=== PATIENT | male | born 1965 | race Hispanic/Latino ===

== ENCOUNTER 2017-04-26 12:14 | Inpatient (IN) | payer MEDICAID ==
--- NOTE | 2017-04-26 13:29 | ED PDOC ---
HPI: Chest Pain Time Seen by Provider: 04/26/17 12:39 Chief Complaint (Nursing): Chest Pain Chief Complaint (Provider): Chest Pain History Per: Patient History/Exam Limitations: no limitations Onset/Duration Of Symptoms: Days (x1. Began around 22:00 last night 04/25/17) Current Symptoms Are (Timing): Still Present Additional Complaint(s): Erik Dow is a 51 year old male, with previous medical history of ascending aortic aneurysm, who presents to the emergency department with complaints of left back pain radiating to his chest and down his left arm intermittently ongoing since symptom onset around 22:00 last night, 04/25/17. Patient described pain as "hard and sharp" with associated shortness of breath, pressure on the left side of chest and a "vibrating" sensation every 5-10 minutes, lasting 10 seconds each. He reports being admitted to the hospital 5-6 months ago for similar symptoms where he was diagnosed with an 4.7cm ascending aortic aneurysm in which he follows up with his architecture drafter, Dr. Marcin Cassidy. PMD: Dr. Jason Banuelos Past Medical History Reviewed: Historical Data, Nursing Documentation, Vital Signs Vital Signs: Last Vital Signs Temp 98.2 F 04/26/17 12:24 Pulse 121 H 04/26/17 12:24 Resp 20 04/26/17 12:24 BP 132/85 04/26/17 12:24 Pulse Ox 97 04/26/17 13:55 - Medical History PMH: Anxiety, Bipolar Disorder, Depression, Diabetes (type II), HTN, Hyperlipidemia Denies: Chronic Kidney Disease Other PMH: AAA - Surgical History Surgical History: Back Surgery - Family History Family History: States: Unknown Family Hx - Home Medications Home Medications: Ambulatory Orders Medication Instructions Recorded Allopurinol [Zyloprim] 300 mg PO DAILY 04/25/16 Aripiprazole [Abilify] 20 mg PO DAILY 04/25/16 Citalopram Hydrobromide [Celexa] 20 mg PO DAILY 04/25/16 GlipiZIDE [Glucotrol] 10 mg PO DAILY 04/25/16 Lisinopril [Zestril] 40 mg PO DAILY 04/25/16 Alogliptin Benzoate [Alogliptin] 25 mg PO DAILY 01/01/17 MetFORMIN [glucoPHAGE] 1,000 mg PO BID 01/01/17 Omeprazole 20 mg PO DAILY 01/01/17 - Allergies Allergies/Adverse Reactions: Allergies Allergy/AdvReac Type Severity Reaction Status Date / Time No Known Allergies Allergy Verified 04/26/17 12:21 Review of Systems ROS Statement: Except As Marked, All Systems Reviewed And Found Negative Constitutional: Negative for: Fever, Chills Cardiovascular: Positive for: Chest Pain (Left sided. Described as "hard" and "sharp" radiating through left arm and fingertips.), Palpitations (Described as "vibrations") Respiratory: Positive for: Shortness of Breath Musculoskeletal: Positive for: Arm Pain (left arm) Physical Exam - Reviewed Nursing Documentation Reviewed: Yes Vital Signs Reviewed: Yes - Physical Exam Appears: Positive for: Well, Non-toxic, No Acute Distress Head Exam: Positive for: ATRAUMATIC, NORMAL INSPECTION, NORMOCEPHALIC Skin: Positive for: Normal Color, Warm, Dry Eye Exam: Positive for: EOMI, Normal appearance, PERRL ENT: Positive for: Normal ENT Inspection Neck: Positive for: Normal, Painless ROM, Supple Cardiovascular/Chest: Positive for: Regular Rate, Rhythm, Chest Non Tender, Tachycardia Respiratory: Positive for: Normal Breath Sounds. Negative for: Crackles, Rales , Rhonchi, Wheezing, Respiratory Distress Gastrointestinal/Abdominal: Positive for: Normal Exam, Bowel Sounds, Soft. Negative for: Tenderness Back: Positive for: Normal Inspection. Negative for: L CVA Tenderness, R CVA Tenderness Extremity: Positive for: Normal ROM. Negative for: Pedal Edema Neurologic/Psych: Positive for: Alert, Oriented - Laboratory Results Result Diagrams: 04/26/17 13:28 04/26/17 13:28 - ECG O2 Sat by Pulse Oximetry: 97 (RA) Pulse Ox Interpretation: Normal Medical Decision Making Medical Decision Making: Initial Impression: Chest pain, expanding aortic aneurysm Initial Plan: * CXR * CT Chest w/ contrast * EKG * Labs * Troponin I * PTT * PT * Urinalysis * reevaluation Scribe Attestation: Documented by Erlinda Roca, acting as a scribe for Yola Mccabe MD. Provider Scribe Attestation: All medical record entries made by the Scribe were at my direction and personally dictated by me. I have reviewed the chart and agree that the record accurately reflects my personal performance of the history, physical exam, medical decision making, and the department course for this patient. I have also personally directed, reviewed, and agree with the discharge instructions and disposition.
[2017-04-26 13:35] LABS: BASO # 0.1 K/uL (0.0-0.2); BASO % 0.6 % (0.0-2.0); EOS # 0.2 K/uL (0.0-0.7); EOS % 1.6 % (0.0-4.0); HEMATOCRIT 43.6 % (35.0-51.0); LYMPH % 20.1 % (20.0-40.0); MEAN CELL VOLUME 92.8 fl (80.0-94.0); MEAN CORPUSCULAR HEMOGLOBIN 30.9 pg (27.0-31.0); MEAN CORPUSCULAR HGB CONC 33.3 g/dL (33.0-37.0); MEAN PLATELET VOLUME 9.5 fl (7.2-11.7); MONO # 0.7 K/uL (0.0-0.8); MONO % 7.3 % (0.0-10.0); NEUT # 6.9 K/uL (1.8-7.0); NEUT % 70.4 % (50.0-75.0); RED CELL DISTRIBUTION WIDTH 13.3 % (11.5-14.5); WHITE BLOOD COUNT 9.8 K/uL (4.8-10.8)
[2017-04-26 13:50] LABS: ALB/GLOB RATIO 1.5 (1.0-2.1); ALKALINE PHOSPHATASE 78 U/L (38-126); ALT/SGPT 122 U/L (21-72); AST/SGOT 69 U/L (17-59); BLOOD UREA NITROGEN 19 mg/dl (9-20); CALCIUM 9.3 mg/dL (8.4-10.2); CARBON DIOXIDE 23 mmol/L (22-30); CHLORIDE 99 mmol/L (98-107); GFR AFRICAN-AMERICAN > 60; GLUCOSE,RANDOM 248 mg/dL (75-110); SODIUM 136 mmol/l (132-148); TOTAL PROTEIN 7.8 G/DL (6.3-8.2)
[2017-04-26 14:03] LABS: PARTIAL THROMBOPLASTIN TIME 29.1 Seconds (25.6-37.1)
[2017-04-26 14:09] LABS: POTASSIUM 4.5 MMOL/L (3.6-5.0)
--- NOTE | 2017-04-26 15:03 | RAD ---
HISTORY: CP COMPARISON: Comparison is made to 01/01/2017 FINDINGS: LUNGS: No active pulmonary disease. PLEURA: No significant pleural effusion identified, no pneumothorax apparent. CARDIOVASCULAR: Normal. OSSEOUS STRUCTURES: No significant abnormalities. VISUALIZED UPPER ABDOMEN: Normal. OTHER FINDINGS: None. IMPRESSION: No active disease.
[2017-04-26] MEDS ORDERED: Iohexol 300 100 ML IJ ONE (15:37)
[2017-04-26] MEDS ORDERED: Sodium Chloride 0.9% 50 ML IV ONE (15:37)
[2017-04-26 15:40] LABS: RBC URINE < 1 /hpf (0-3); URINE BILIRUBIN NEGATIVE (NEGATIVE); URINE BLOOD NEGATIVE (NEGATIVE); URINE COLOR YELLOW (YELLOW); URINE GLUCOSE (UA) >=500 mg/dL (Normal); URINE KETONE 20 mg/dL (NEGATIVE); URINE LEUKOCYTE ESTERASE NEG Leu/uL (Negative); URINE PROTEIN NEGATIVE (NEGATIVE); URINE UROBILINOGEN 0.2-1.0 mg/dL (0.2-1.0); WBC URINE < 1 /hpf (0-5)
--- NOTE | 2017-04-26 15:43 | ED PDOC ---
- Laboratory Results Result Diagrams: 04/26/17 13:28 04/26/17 13:28 Interpretation Of Abn Labs: no acute - ECG ECG: Positive for: Interpreted By Me, Viewed By Me ECG Rhythm: Positive for: Nonspecific Changes (similar to old) O2 Sat by Pulse Oximetry: 97 (RA) Pulse Ox Interpretation: Normal - CT Scan/US ct Other Rad Studies (CT/US): Read By Radiologist Other Rad Interpretation: no acute Medical Decision Making Medical Decision Making: Time: 15:00 --Transferred patient from Dr. Mccabe --Pending CT, reassessment, and disposition. Time: 15:02 --Chest X-ray FINDINGS: LUNGS: No active pulmonary disease. PLEURA: No significant pleural effusion identified, no pneumothorax apparent. CARDIOVASCULAR: Normal. OSSEOUS STRUCTURES: No significant abnormalities. VISUALIZED UPPER ABDOMEN: Normal. OTHER FINDINGS: None. IMPRESSION: No active disease. Scribe Attestation: Documented by Liliana Anne, acting as a scribe for Lb Stuart MD. Provider Scribe Attestation: All medical record entries made by the Scribe were at my direction and personally dictated by me. I have reviewed the chart and agree that the record accurately reflects my personal performance of the history, physical exam, medical decision making, and the department course for this patient. I have also personally directed, reviewed, and agree with the discharge instructions and disposition. 1730: Stable. Spoke with Dr. Young. Will admit. Pain free currently. Will give further orders when pt. reaches floor. Disposition Counseled Patient/Family Regarding: Studies Performed, Diagnosis - Clinical Impression Clinical Impression: Acute chest pain - POA Present On Arrival: Poor Glycemic Control (mild) - Disposition Disposition: Hospitalized as Observation Patient Disposition Time: 17:30 Condition: FAIR
--- NOTE | 2017-04-26 16:40 | CT ---
PROCEDURE: CT Chest with contrast HISTORY: CP, h/o AA COMPARISON: Comparison is made to the previous study dated 01/01/2017 TECHNIQUE: Contiguous axial images were obtained through the chest with intravenous contrast enhancement. Sagittal and coronal reconstructions were performed. IV contrast: 95 mL Omnipaque 300 Radiation dose (DLP): 729.31 mGy-cm. This CT exam was performed using one or more of the following dose reduction techniques: Automated exposure control, adjustment of the mA and/or kV according to patient size, and/or use of iterative reconstruction technique. FINDINGS: LUNGS: Clear lungs. Visualized airway clear. MEDIASTINUM: Mild aneurysmal changes of the ascending thoracic aorta is again noted. The ascending thoracic aorta measures 4.5 centimeter at the proximal portion/aortic root and 4.3 centimeter in the mid to upper portion. The aortic arch is mildly ectatic. The descending thoracic aorta measures 3.7 centimeter in the transverse diameter. No evidence of artery dissection. .Heart mildly enlarged. . Main pulmonary artery unremarkable. No vascular congestion. No lymphadenopathy. PLEURA: No pleural fluid. No pneumothorax. BONES: No fracture. No destructive lesion. UPPER ABDOMEN: Diffuse low-attenuation of the liver is again noted likely represent moderate steatosis. OTHER FINDINGS: None. IMPRESSION: No evidence of significant interval change in the size of the thoracic aorta compared to the previous study dated 01/01/2017. Mild aneurysmal changes of the ascending thoracic aorta is again noted. The articular arch and descending thoracic aorta are ectatic and mildly tortuous. Mild cardiomegaly. No evidence of acute pulmonary disease. Diffuse low-attenuation of the liver again noted suggestive of moderate steatosis.
--- NOTE | 2017-04-26 19:33 | CARD ---
APPROVED REPORT EKG Measurement Heart [id number] MI [id number] <Conclusion> Sinus tachycardia Possible Inferior infarct, age undetermined Abnormal ECG
[2017-04-26] MEDS ORDERED: Patient's Own Med (Oxycodone [Oxycodone Immediate Release Tab] 15 mg) PO PRN (22:30)
[2017-04-26] MEDS: Insulin Regular 100 units/ml SC SCH (22:59)
[2017-04-27] MEDS: Insulin Regular 100 units/ml SC SCH ×4 (06:52→22:00)
[2017-04-27] MEDS: Metoprolol Succinate 50 mg XL Tab PO SCH (08:33)
[2017-04-27] MEDS: Pantoprazole 40 mg EC Tab PO SCH (08:34)
[2017-04-27] MEDS: Enoxaparin 40 mg Syringe SC SCH (08:34)
[2017-04-27] MEDS: oxyCODONE 5 mg Immediate Release Tab PO PRN (08:43)
[2017-04-27 08:46] LABS: THYROID STIMULATING HORMONE 3.13 mIU/ML (0.46-4.68)
[2017-04-27] MEDS ORDERED: Patient's Own Med (Lisinopril [Zestril] 40 MG) PO SCH (09:00)
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
--- NOTE | 2017-04-28 00:23 | CON ---
DATE: 04/27/2017 REASON FOR CONSULTATION: Chest pain. HISTORY OF PRESENT ILLNESS: The patient is a 51-year-old male who has a history of ascending aortic aneurysm and presented to the Emergency Room because of back pain, as well as chest pain. The patien t denies any associated diaphoresis or dizziness. The patient is being followed as an outpatient by his sand screener, Dr. Fawad Snider, that is at [facility] in [place]. The patient de scribes his pain as vibrating in nature. SOCIAL HISTORY: The patient is a smoker. MEDICATIONS: Abilify 5 mg once a day, metformin 1 gram twice a day, glipizide 10 mg once a day, Love nox 40 mg subcutaneous once a day, Januvia 100 mg daily, Toprol-XL 50 mg once a day, lisinopril 40 mg once a day, Zyloprim 300 mg once a day. REVIEW OF SYSTEMS: No dizziness or syncope. No productive cough. No fever or chills. No palpitati on. PHYSICAL EXAMINATION: GENERAL: The patient is a middle-aged male who does not appear to be in acute distress. VITAL SIGNS: Blood pressure 100/65, heart rate 75, temperature 97.5, respirations 18. HEENT: Normocephalic. NECK: No JVD. CHEST: Clear. HEART: S1, S2 regular. ABDOMEN: Soft. EXTREMITIES: No edema. LABORATORY DATA: CBC is within normal limits. Two sets of troponins are within normal limits. SMA- 7 is within normal limits except for a glucose of 248. PT, PTT and INR are within normal limits. EK G revealed sinus tachycardia . Chest CT scan with contrast revealed no evidence of significant interval change in the size of the thoracic aorta compared to an earlier study in December. This siz e measures 4.5 cm in the proximal portion, aortic root 4.3 cm in the mid to upper portion, aortic arc h is mildly , ascending aorta measures 3.7 cm in the transverse diameter. Mild cardiomegaly. C hest x-ray was unremarkable. Echocardiographic study performed in December of this year reported eje ction fraction in the range of 55%-60%, trace aortic insufficiency and aortic root was mildly enlarge d. ASSESSMENT: 1. Chest pain, myocardial infarction is ruled out. 2. Mild aneurysmal changes of the ascending thoracic aorta. The largest diameter is 4.5 cm. 3. Hypertension. 4. Uncontrolled diabetes mellitus. RECOMMENDATIONS: Continue current Lovenox at 40 mg once a day, Toprol-XL at 50 mg once a day, Zestri l at 20 mg once a day. Hold metformin for a total of 48 hours after the completion of the CT angio o f the chest. No immediate cardiac workup is indicated at this time and the patient can follow up wit h his sand screener, Dr. Snider, at the [facility] as an outpatient. Andrzej Roa MD cc: [id number] TT: 04/28/2017 00:22:52 Confirmation # [id number] Dictation # [id number] mn
[2017-04-28 05:41] LABS: HEMATOCRIT 41.1 % (35.0-51.0); MEAN CELL VOLUME 93.5 fl (80.0-94.0); MEAN CORPUSCULAR HEMOGLOBIN 31.2 pg (27.0-31.0); MEAN CORPUSCULAR HGB CONC 33.4 g/dL (33.0-37.0); RED CELL DISTRIBUTION WIDTH 13.3 % (11.5-14.5); WHITE BLOOD COUNT 6.9 K/uL (4.8-10.8)
[2017-04-28 05:50] LABS: ALB/GLOB RATIO 1.4 (1.0-2.1); ALKALINE PHOSPHATASE 70 U/L (38-126); ALT/SGPT 142 U/L (21-72); AST/SGOT 84 U/L (17-59); BILIRUBIN,TOTAL 0.9 mg/dl (0.2-1.3); BLOOD UREA NITROGEN 14 mg/dl (9-20); CALCIUM 9.3 mg/dL (8.4-10.2); CARBON DIOXIDE 26 mmol/L (22-30); CHLORIDE 96 mmol/L (98-107); CHOLESTEROL 237 mg/dL (0-199); GFR AFRICAN-AMERICAN > 60; GLUCOSE,RANDOM 259 mg/dL (75-110); POTASSIUM 4.4 MMOL/L (3.6-5.0); SODIUM 134 mmol/l (132-148); TOTAL PROTEIN 7.2 G/DL (6.3-8.2)
[2017-04-28] MEDS: Insulin Regular 100 units/ml SC SCH ×4 (06:30→21:40)
[2017-04-28] MEDS: Metoprolol Succinate 50 mg XL Tab PO SCH (09:23)
[2017-04-28] MEDS: Enoxaparin 40 mg Syringe SC SCH (09:24)
[2017-04-28] MEDS: Pantoprazole 40 mg EC Tab PO SCH (09:24)
[2017-04-28] MEDS: oxyCODONE 5 mg Immediate Release Tab PO PRN ×2 (09:31→20:34)
--- NOTE | 2017-04-28 10:26 | PN ---
DATE: 04/28/2017 The patient is seen and examined. Interim events noted. Consults noted and appreciated. Cardiology followup and intervention noted and appreciated. The patient remains in progressive care unit on te lemetry monitoring. The patient feels okay. No specific complaint. No chest pain or shortness of b reath. PHYSICAL EXAMINATION: GENERAL: The patient is in no acute distress. VITAL SIGNS: Stable. HEART: S1, S2 normal, regular. LUNGS: Good bilateral air exchange. ABDOMEN: Soft, nontender. EXTREMITIES: No edema, no calf swelling, no tenderness, no acute ischemia. CENTRAL NERVOUS SYSTEM: Essentially unchanged. DIAGNOSTIC DATA: Available diagnostic data reviewed. Telemetry monitoring does not reveal significa nt arrhythmia. Cardiology consult noted and appreciated. The patient is medically stable. We will discharge the iris ray home today. The patient will be followed up by primary care physician and indirect fire infantryman, Dr. Me colin Snider. Case and plan discussed with the patient. Topher Young MD cc: [id number] TT: 04/28/2017 10:25:13 Confirmation # [id number] Dictation # [id number] arelis
--- NOTE | 2017-04-28 17:33 | PN ---
DATE: 04/28/2017 The patient denies any shortness of breath. He complains of vague chest discomfort. PHYSICAL EXAMINATION: VITAL SIGNS: Blood pressure 109/77, heart rate 92, temperature 99, respirations 18. HEENT: Normocephalic. CHEST: Bilateral rhonchi. HEART: S1, S2 regular. ABDOMEN: Soft. EXTREMITIES: No edema. LABORATORIES: Urine drug screen is negative despite the fact that the patient is receiving Xanax and oxycodone, which raises suspicion that the urine sample may not be his. Today's SMA-7 is within nor mal limits except for glucose of 259 and chloride of 96. Triglycerides are elevated at 825, LDL chol esterol is elevated at 237. ASSESSMENT: 1. Chest pain, myocardial infarction is ruled out. 2. Hyperlipidemia. 3. Uncontrolled diabetes mellitus. 4. History of thoracic aortic aneurysm. RECOMMENDATIONS: Continue current Zestril at 40 mg once a day, Toprol-XL at 50 mg once a day, Loveno x at 40 mg subcutaneous once a day. No invasive cardiac workup is indicated at this time and the [facility] ient can continue the cardiac followup with his outpatient drug safety assistant, Dr. Snider, upon discharge. In the meantime, I will start Lipitor at 40 mg orally once a day. Andrzej Roa MD cc: [id number] TT: 04/28/2017 17:32:43 Confirmation # [id number] Dictation # [id number] sn
[2017-04-29 07:59] VITALS: RESP 18
[2017-04-29] MEDS: Pantoprazole 40 mg EC Tab PO SCH (09:54)
[2017-04-29] MEDS: Metoprolol Succinate 50 mg XL Tab PO SCH (09:55)
[2017-04-29] MEDS: Enoxaparin 40 mg Syringe SC SCH (09:56)
[2017-04-29] MEDS: Insulin Regular 100 units/ml SC SCH ×2 (09:56→12:30)
--- NOTE | 2017-04-29 10:13 | PQF CHESTP ---
This form is a permanent part of the medical record 04/29/17 , Would you please clarify the possible etiology of the chest pain if known. Admitted with chest pain which radiates to the shoulder and left arm. History of ascending aortic aneurysm and elevated cholesterol. EKG: Sinus tachycardia, possible inferior infarct age undetermined. Triglycerides 825, Cholesterol 237.Troponins negative. Medications include: Toprol XL, Lipitor and Zestril There is clinical documentation of CHEST PAIN with evaluation, treatment, and / or monitoring present in the medical record. Please clarify the possible / probable cause of CHEST PAIN. PHYSICIAN RESPONSE CAUSE OF CHEST PAIN: Please Check [] Documentation: [] Musculoskeletal Chest Pain [] Costochondritis [] Gastroesophageal Reflux Disease (GERD) [] Acute Gastritis [] CAD [] Other [] [] Unknown [] In responding to this query, please exercise your independent professional judgment. The fact that a question is asked does not imply that any particular answer is desired or expected. Thank you for your clarification on this documentation. If you have any questions please call:extension [phone] Medical Records Dept. * Thank you, Clotilde Young RN CDMP MTDD
[2017-04-29] MEDS: oxyCODONE 5 mg Immediate Release Tab PO PRN (10:52)
[2017-04-29 12:07] VITALS: BP 112/79; PULSE 96; TEMP 98.3; O2SAT 96
--- NOTE | 2017-04-29 18:14 | DS ---
This is a 51-year-old male with known case of hypertension and aortic aneurysm who was admitted with chest pain. Acute MD was ruled out. Cardiology consult was sent, suggestions were followed. The pa flor was medically stable and on 04/29/2017 the patient was discharged home. The patient will follo w up with his primary care physician and Capital Project Engineer Dr. Snider . Topher Young MD cc: [id number] TT: 04/29/2017 18:13:22 dn
--- NOTE | 2017-04-29 18:15 | PN ---
DATE: 04/29/2017 HISTORY OF PRESENT ILLNESS: The patient seen and examined. Interim events noted. Consults noted an d appreciated. Cardiology followup and intervention noted and appreciated. The patient remains in p rogressive care unit on telemetry monitoring. The patient had rash, for which the patient was not prescribed any medications but the patient improved by himself. REVIEW OF SYSTEMS: At this time, is negative. PHYSICAL EXAMINATION: HEART: S1, S2 normal, regular. LUNGS: Good bilateral air entry. ABDOMEN: Soft, nontender. EXTREMITIES: No edema, no calf swelling, no tenderness, no acute ischemia. CENTRAL NERVOUS SYSTEM: Essentially unchanged. VITAL SIGNS: Stable. DIAGNOSTIC DATA: Available diagnostic data reviewed. Telemetry monitoring does not reveal significa nt arrhythmia. ASSESSMENT AND PLAN: Overall, the patient is medically stable. The patient will be discharged today to be followed up by primary care physician and transformation consultant. Case and plan were discussed with michael carver. The patient will be followed up by his primary physical laboratory assistant, Dr. Tylor Burch. Topher Young MD cc: [id number] TT: 04/29/2017 18:14:49 Confirmation # [id number] Dictation # [id number] ln
== END 2017-04-29 14:35 | disposition home or self-care (01) | DRG 143 ==
LOC: H.ER 12:14 → H.EROBSV 17:07 → H.ERHOLD 17:39 → H.TEL 20:48 → OBSVTOIN 04-27 18:30
PROVIDERS: ADMIT Internal Medicine; ATTEND Internal Medicine
DX: R07.89 Other chest pain (principal); I25.10 Atherosclerotic heart disease of native coronary artery without angina pectoris; E11.65 Type 2 diabetes mellitus with hyperglycemia; I71.2 Thoracic aortic aneurysm, without rupture; I10 Essential (primary) hypertension; E66.9 Obesity, unspecified; Z68.34 Body mass index [BMI] 34.0-34.9, adult; E78.00 Pure hypercholesterolemia, unspecified; E78.5 Hyperlipidemia, unspecified; F31.9 Bipolar disorder, unspecified; F41.9 Anxiety disorder, unspecified

== ENCOUNTER 2019-03-07 17:06 | Emergency (ER) | payer MEDICAID ==
[2019-03-07 17:06] VITALS: BMI 34.4
[2019-03-07 17:15] VITALS: O2SAT 99
[2019-03-07] MEDS ORDERED: Iohexol 240 (50 ml) PO ONE (18:09)
[2019-03-07 18:52] LABS: BASO # 0.1 K/uL (0.0-0.2); BASO % 1.2 % (0.0-2.0); EOS # 0.2 K/uL (0.0-0.7); EOS % 2.6 % (0.0-4.0); HEMOGLOBIN 13.8 g/dL (12.0-18.0); LYMPH % 31.5 % (20.0-40.0); MEAN CORPUSCULAR HEMOGLOBIN 30.9 pg (27.0-31.0); MEAN PLATELET VOLUME 9.2 fl (7.2-11.7); MONO # 0.6 K/uL (0.0-0.8); MONO % 9.9 % (0.0-10.0); NEUT # 3.4 K/uL (1.8-7.0); NEUT % 54.8 % (50.0-75.0); RBC 4.45 Mil/uL (4.40-5.90); RED CELL DISTRIBUTION WIDTH 13.8 % (11.5-14.5); WHITE BLOOD COUNT 6.2 K/uL (4.8-10.8)
[2019-03-07 19:01] LABS: MEAN CELL VOLUME 90.9 fl (80.0-94.0)
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
[2019-03-07 19:16] LABS: PROTHROMBIN TIME 11.3 Seconds (9.8-13.1)
[2019-03-07 19:18] LABS: ALB/GLOB RATIO 1.7 (1.0-2.1); ALBUMIN 4.7 g/dL (3.5-5.0); ALT/SGPT 94 U/L (21-72); AST/SGOT 62 U/L (17-59); BLOOD UREA NITROGEN 13 mg/dl (9-20); CALCIUM 10.1 mg/dL (8.4-10.2); GFR NON-AFRICAN AMERICAN > 60; LIPASE 74 U/L (23-300); PARTIAL THROMBOPLASTIN TIME 31.1 Seconds (25.6-37.1)
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
[2019-03-07] MEDS ORDERED: Morphine 4 MG/ML VIAL ONE (19:24)
[2019-03-07] MEDS ORDERED: Iohexol 240 (50 ml) ONE (19:25)
--- NOTE | 2019-03-07 19:30 | ED PDOC ---
- Laboratory Results Result Diagrams: 03/07/19 18:40 03/07/19 18:40 Lab Results: PT 11.3 Seconds (9.8-13.1) 03/07/19 18:40 INR 1.0 03/07/19 18:40 APTT 31.1 Seconds (25.6-37.1) 03/07/19 18:40 Total Bilirubin 0.8 mg/dl (0.2-1.3) 03/07/19 18:40 AST 62 U/L (17-59) H D 03/07/19 18:40 ALT 94 U/L (21-72) H D 03/07/19 18:40 Alkaline Phosphatase 91 U/L (38-126) 03/07/19 18:40 Total Protein 7.5 G/DL (6.3-8.2) 03/07/19 18:40 Albumin 4.7 g/dL (3.5-5.0) 03/07/19 18:40 Globulin 2.8 gm/dL (2.2-3.9) 03/07/19 18:40 Albumin/Globulin Ratio 1.7 (1.0-2.1) 03/07/19 18:40 Lipase 74 U/L (23-300) 03/07/19 18:40 - ECG O2 Sat by Pulse Oximetry: 99 (RA) Pulse Ox Interpretation: Normal Medical Decision Making Medical Decision Making: Time: 1899 --Workup for new midline hernia. Patient with diffuse abdominal pain signed out to this provider, by Dr. Stafford pending CT results and labs Time: 2232 CT Abdomen and Pelvis with IV contrast FINDINGS: LUNG BASES: The lung bases appear clear. No pleural effusions are seen. LIVER: There is diffuse fatty infiltration of liver. GALLBLADDER AND BILE DUCTS: There is a small calcified gallstone in the partially contracted gallbladder. PANCREAS: Unremarkable. SPLEEN: Unremarkable. ADRENAL GLANDS: Unremarkable. KIDNEYS, URETERS, AND BLADDER: The kidneys appear within normal limits. There is no hydronephrosis or hydroureter. No urinary calculi are seen. STOMACH AND BOWEL: There is constipation the colon. No bowel obstruction. APPENDIX: Normal appendix. PERITONEUM: No free fluid. No free air. LYMPH NODES: No lymphadenopathy is evident. REPRODUCTIVE: Unremarkable as visualized. VASCULATURE: No evidence of abdominal aortic aneurysm. BONES: Moderate multilevel degenerative spine changes. IMPRESSION: 1. There is diffuse fatty infiltration of liver. 2. There is a small calcified gallstone in the partially contracted gallbladder. 3. There is constipation in the colon. 4. Moderate multilevel degenerative spine changes. Time: 2243 --CT demonstrates constipation and fatty liver. Patient is medically stable for discharge home and advised to follow up with PMD in 1-2 days. ScribeAttestation: Documented byQuin Yip, acting as a scribe for Radha Hamilton MD. Provider ScribeAttestation: All medical record entries made by the Scribe were at my direction and personally dictated by me. I have reviewed the chart and agree that the record accurately reflects my personal performance of the history, physical exam, medical decision making, and the department course for this patient. I have also personally directed, reviewed, and agree with the discharge instructions and disposition. Disposition - Clinical Impression Clinical Impression: Fatty liver, Constipation - POA Present On Arrival: None - Disposition Referrals: [facility] [Outside] Disposition: Routine/Home Disposition Time: 22:44 Condition: IMPROVED Additional Instructions: Increase hydration and fruits and vegetables to prevent constipation. Follow up with primary medical doctor for further workup of fatty liver. Instructions: Constipation, Adult (DC), Nonalcoholic Fatty Liver Disease (DC) Forms: [employer] (Persian)
[2019-03-07] MEDS ORDERED: Morphine 4 MG/ML VIAL IVP ONE (19:45)
[2019-03-07] MEDS ORDERED: Iohexol 300 100 ML IJ ONE (21:24)
[2019-03-07] MEDS ORDERED: Sodium Chloride 0.9% 50 ML IV ONE (21:25)
[2019-03-07 23:06] VITALS: BP 145/79; PULSE 89; RESP 17; TEMP 98.1
--- NOTE | 2019-03-08 10:17 | RAD ---
Date of service: 03/07/2019 HISTORY: Chest pain COMPARISON: Comparison made with prior chest radiograph dated 04/26/2017 TECHNIQUE: 1 view obtained. FINDINGS: LUNGS: No active pulmonary disease. PLEURA: No significant pleural effusion identified, no pneumothorax apparent. CARDIOVASCULAR: Aorta slightly ectatic and uncoiled no aortic atherosclerotic calcification present. Heart size upper limits of normal. No pulmonary vascular congestion. OSSEOUS STRUCTURES: No significant abnormalities. VISUALIZED UPPER ABDOMEN: Normal. OTHER FINDINGS: None. IMPRESSION: No active disease.
--- NOTE | 2019-03-08 10:59 | CT ---
Date of service: 03/07/2019 PROCEDURE: CT abdomen and pelvis HISTORY: Abdominal pain COMPARISON: No prior study available for comparison. Correlation was made with CT chest 04/26/2017 which image the upper abdomen TECHNIQUE: Contiguous axial images of the abdomen and pelvis performed following oral and intravenous injection of approximately diet 5 cc Omnipaque 300 contrast material. Additional 2D sagittal and coronal reformats generated. Radiation dose: Total exam DLP = 876.79 mGy-cm. This CT exam was performed using one or more of the following dose reduction techniques: Automated exposure control, adjustment of the mA and/or kV according to patient size, and/or use of iterative reconstruction technique. FINDINGS: LOWER THORAX: Lung bases clear. No infiltrate effusion or basilar pneumothorax. Heart size within range of normal. There is a small hiatal hernia. The the LIVER: Liver is enlarged measuring over 20 cm in CC dimension. Moderate fatty hepatic infiltration. No obvious hepatic mass collection or calcification. Portal and splenic veins are opacified. GALLBLADDER AND BILE DUCTS: Gallbladder is contracted with intraluminal calculus near the gallbladder neck PANCREAS: Pancreas appears slightly atrophic and fatty replaced. SPLEEN: Spleen is mildly enlarged measuring nearly 14 cm in AP dimension. Spleen exhibits normal size and attenuation pattern without masses collections or calcifications. Attenuation pattern without mass collection or calcification. ADRENALS: There are no adrenal lesions. KIDNEYS AND URETERS: Kidneys demonstrate symmetric nephrograms. No evidence of nephrolithiasis or hydronephrosis. There is a small exophytic cyst arising from the anteromedial cortex lower pole right kidney BLADDER: The urinary bladder is physiologically distended. No evidence of intraluminal urinary bladder calculi. REPRODUCTIVE: Unremarkable as visualized. APPENDIX: Normal appendix BOWEL: Evaluation of the bowel is slightly limited due to incomplete opacification. The stomach is partially distended with food debris liquid and air. Partial distension presumably accounts for slight thick-walled appearance. Visualized loops of small bowel exhibit normal contour and caliber. No evidence of acute mechanical small bowel obstruction. There is however fecalized content within multiple loops of small bowel suggesting fecal stasis. Moderate amount of stool seen throughout the large bowel suggesting mild fecal retention/constipation. PERITONEUM: Unremarkable. No fluid collection. No free air.. There is a small left parasagittal upper abdominal wall hernia above the level of the umbilicus. Small fat containing umbilical hernia. Small bilateral fat containing inguinal hernias. LYMPH NODES: There are several small to medium-sized upper abdominal and retroperitoneal lymph nodes seen. The largest retrocaval lymph node measures approximately 14 mm VASCULATURE: Unremarkable. No aortic aneurysm. No aortic atherosclerotic calcification or mural plaque present. BONES: Mild-moderate multilevel degenerative spondylosis of the lower thoracic and lumbar spine. Chronic compression deformity superior L1 endplate OTHER FINDINGS: None. IMPRESSION: Hepatomegaly with moderate fatty hepatic infiltration. Mild splenomegaly. Cholelithiasis within contracted gallbladder. Small right renal cyst. See above discussion for additional findings and details.
--- NOTE | 2019-03-08 15:29 | CARD ---
APPROVED REPORT Date of service: 03/07/2019 EKG Measurement Heart [id number] <Conclusion> Normal sinus rhythm Inferior infarct, age undetermined Abnormal ECG
== END 2019-03-07 23:05 | disposition home or self-care (01) ==
LOC: H.ER 17:06
DX: R10.9 Unspecified abdominal pain (principal); E11.9 Type 2 diabetes mellitus without complications; E78.5 Hyperlipidemia, unspecified; I10 Essential (primary) hypertension; Z86.59 Personal history of other mental and behavioral disorders; Z79.84 Long term (current) use of oral hypoglycemic drugs
CPT/HCPCS: 71045; 74177; 80053; 82948; 83605; 83690; 85025; 85610; 85730; 93005; 96374; 99284; J2270; Q9966; Q9967